=== PATIENT | male | born 1965 | race Caucasian/White ===

== ENCOUNTER 2017-12-31 19:20 | Inpatient (IN) | payer MEDICAID ==
[~2017-12-31] VITALS: Ht 177.8 cm; Wt 107.1 kg
[~2017-12-31 19:20] MED LIST: ASCO100019 PO; ASCO100072 PO; LEVO137T2 PO; MULT-516 PO; MULT-658 PO; ONDA8TAB9 PO; OXYC-302 PO; PROC10TA78 PO; WARF7.5T PO; [UNRECOGNIZED DRUG - OTHER] PO
[2017-12-31 20:12] LABS: ALANINE AMINOTRANSFERASE 40 U/L (12-78); ANION GAP 8 mmol/L (5-15); CALCIUM 9.3 mg/dL (8.5-10.1); CHLORIDE 106 mmol/L (98-107); CREATININE 1.41 mg/dL (0.7-1.3)
[2017-12-31 20:14] LABS: ALKALINE PHOSPHATASE 56 U/L (45-117); BILIRUBIN,TOTAL 1.2 mg/dL (0.2-1.0)
[2017-12-31 20:19] LABS: BASOPHILS # (AUTO) 0.04 x10^3/uL (0-0.1); BASOPHILS % (AUTO) 0 % (0-1); EOSINOPHILS # (AUTO) 0.15 x10^3/uL (0-0.4); EOSINOPHILS % (AUTO) 1 % (1-7); LYMPHOCYTES # (AUTO) 1.66 x10^3/uL (1-3.4); LYMPHOCYTES % (AUTO) 15 % (22-44); MD NO; MEAN CORPUSCULAR HEMOGLOBIN 32.6 pg (27.5-34.5); MEAN CORPUSCULAR HGB CONC 34.7 g/dL (33.2-36.2); MEAN PLATELET VOLUME 7.5 fL (7.4-10.4); MONOCYTES % (AUTO) 10 % (2-9); NEUTROPHILS # (AUTO) 8.13 x10^3/uL (1.8-6.8); NEUTROPHILS % (AUTO) 73 % (42-75); PLATELET COUNT 221 x10^3/uL (130-400); RED BLOOD COUNT 4.98 x10^6/uL (4.38-5.82); RED CELL DISTRIBUTION WIDTH 13.2 % (9.4-14.8)
[2017-12-31 20:26] LABS: MICROSCOPIC AUTO
[2017-12-31 20:27] LABS: CULTURE INDICATED? NO
[2017-12-31] MEDS ORDERED: OMNIPAQUE 350 MG/ML, 100ML BOTTLE ONE (22:00)
[2017-12-31] MEDS ORDERED: ACETAMINOPHEN 500 MG TABLET PO ONE (22:30)
[2017-12-31] MEDS ORDERED: CIPROFLOXACIN/PMX 400MG/200ML 200 ML IV ONE (22:30)
[2017-12-31] MEDS ORDERED: METRONIDAZOLE PMX 500MG/100ML 100 ML IV ONE (22:30)
[2017-12-31] MEDS ORDERED: SODIUM CHLORIDE 0.9% 1,000ML IVBOLUS ONE (22:30)
[2017-12-31] MEDS ORDERED: ACETAMINOPHEN 500 MG TABLET ONE (22:41)
[2017-12-31] MEDS ORDERED: METRONIDAZOLE PMX 500MG/100ML 100 ML ONE (22:41)
[2017-12-31] MEDS ORDERED: ACETAMINOPHEN 325 MG TABLET PO PRN (23:00)
[2017-12-31] MEDS: ENOXAPARIN 40 MG/0.4 ML SQ SCH (23:00)
[2017-12-31] MEDS ORDERED: MORPHINE SULFATE 4 MG/ML, 1ML IVPush PRN (23:00)
[2017-12-31] MEDS: METRONIDAZOLE PMX 500MG/100ML 100 ML IV SCH (23:00)
[2017-12-31] MEDS ORDERED: ONDANSETRON 2MG/ML, 2ML IVPush PRN ×2 (23:00)
[2017-12-31] MEDS ORDERED: POLYETHYLENE GLYCOL 17 GM PACKET PO PRN (23:00)
[2017-12-31] MEDS ORDERED: OXYcodone IR 5MG TABLET PO PRN (23:00)
[2017-12-31] MEDS ORDERED: morphine SULFATE 10 MG/ML, 1ML IVPush PRN (23:00)
[2017-12-31] MEDS: SODIUM CHLORIDE 0.9% 1,000 ML IV SCH (23:41)
[2018-01-01] MEDS: CEFTRIAXONE 1,000 MG in SODIUM CHLORIDE 0.9% 50 ML IV SCH ×2 (00:01→22:24)
[2018-01-01 00:06] VITALS: BP 130/84
[2018-01-01 02:00] VITALS: BP 126/69
[2018-01-01 05:37] LABS: BASOPHILS # (AUTO) 0.02 x10^3/uL (0-0.1); BASOPHILS % (AUTO) 0 % (0-1); EOSINOPHILS # (AUTO) 0.31 x10^3/uL (0-0.4); EOSINOPHILS % (AUTO) 3 % (1-7); LYMPHOCYTES # (AUTO) 2.15 x10^3/uL (1-3.4); LYMPHOCYTES % (AUTO) 21 % (22-44); MD NO; MEAN CORPUSCULAR HGB CONC 34.1 g/dL (33.2-36.2); MEAN CORPUSCULAR VOLUME 93.8 fL (81-97); MEAN PLATELET VOLUME 7.2 fL (7.4-10.4); MONOCYTES # (AUTO) 1.37 x10^3/uL (0.2-0.8); MONOCYTES % (AUTO) 13 % (2-9); NEUTROPHILS # (AUTO) 6.59 x10^3/uL (1.8-6.8); NEUTROPHILS % (AUTO) 63 % (42-75); PLATELET COUNT 209 x10^3/uL (130-400); RED BLOOD COUNT 4.35 x10^6/uL (4.38-5.82)
[2018-01-01 05:45] LABS: CHLORIDE 108 mmol/L (98-107)
[2018-01-01 05:50] LABS: ANION GAP 9 mmol/L (5-15); CALCIUM 8.4 mg/dL (8.5-10.1); CREATININE 1.13 mg/dL (0.7-1.3)
[2018-01-01] MEDS: METRONIDAZOLE PMX 500MG/100ML 100 ML IV SCH ×3 (06:26→23:56)
[2018-01-01] MEDS: LEVOTHYROXINE 137 MCG TABLET PO SCH (10:38)
[2018-01-01 13:22] VITALS: BP 126/79
[2018-01-01] MEDS: SODIUM CHLORIDE 0.9% 1,000 ML IV SCH ×2 (13:28→22:24)
[2018-01-01 19:00] VITALS: BP 116/71
[2018-01-01] MEDS: ENOXAPARIN 40 MG/0.4 ML SQ SCH (23:00)
[2018-01-02 00:29] VITALS: BP 118/65
[2018-01-02 07:28] VITALS: BP 116/78
[2018-01-02] MEDS: METRONIDAZOLE PMX 500MG/100ML 100 ML IV SCH ×2 (08:33→14:44)
[2018-01-02] MEDS: LEVOTHYROXINE 137 MCG TABLET PO SCH (08:35)
[2018-01-02] MEDS ORDERED: CIPR500T87 PO (12:29)
[2018-01-02] MEDS ORDERED: METR500T PO (12:29)
[2018-01-02 12:57] VITALS: BP 115/66
[2018-01-02] MEDS: CEFTRIAXONE 1,000 MG in SODIUM CHLORIDE 0.9% 50 ML IV SCH (14:04)
== END 2018-01-02 16:45 | disposition home or self-care (01) | DRG 391 ==
LOC: SUATTDRO 22:43 → ED 22:54 → EDIP 22:55 → 3NE 23:16
PROVIDERS: ADMIT Hospitalist; ATTEND Hospitalist
DX: K57.32 Diverticulitis of large intestine without perforation or abscess without bleeding (principal); N17.0 Acute kidney failure with tubular necrosis; K76.0 Fatty (change of) liver, not elsewhere classified; E03.9 Hypothyroidism, unspecified; D72.829 Elevated white blood cell count, unspecified; Z87.442 Personal history of urinary calculi; Z85.038 Personal history of other malignant neoplasm of large intestine; Z90.49 Acquired absence of other specified parts of digestive tract; Z79.899 Other long term (current) drug therapy; Z79.2 Long term (current) use of antibiotics; Z92.21 Personal history of antineoplastic chemotherapy
CPT/HCPCS: 36415; 74177; 80048; 80053; 81001; 83690; 83735; 84100; 85025; 87040; 96360; 99285; J0696; Q9967; J7030

== ENCOUNTER → 2018-09-27 | Outpatient (CLI) | payer OTHER ==
[~2018-09-27] MED LIST changes: +CIPR500T87 PO; +METR500T PO; +OMNIPAQUE 350 MG/ML, 100ML BOTTLE ONE
== END | disposition home or self-care (01) ==
LOC: CFH 14:16
PROVIDERS: ATTEND Internal Medicine Hematology & Oncology
DX: C18.2 Malignant neoplasm of ascending colon (principal); M95.4 Acquired deformity of chest and rib; N20.0 Calculus of kidney; N28.1 Cyst of kidney, acquired; K57.30 Diverticulosis of large intestine without perforation or abscess without bleeding
CPT/HCPCS: 71260; 74177; Q9967